=== PATIENT | female | born 1960 | race African-American/Black ===

== ENCOUNTER 2022-12-21 15:08 | Emergency (ER) | payer OTHER, MEDICAID ==
[~2022-12-21] VITALS: Ht 162.6 cm; Wt 68.0 kg
[2022-12-21 15:18] VITALS: BP 102/68
--- NOTE | 2022-12-21 15:23 | NUR ---
pt ambulatory to [facility] w steady gait.
[2022-12-21] MEDS ORDERED: IBUPROFEN 600 MG TAB PO ONE (15:40)
[2022-12-21] MEDS ORDERED: CYCL-711 PO (17:16)
[2022-12-21] MEDS ORDERED: NAPR-54 PO (17:16)
[2022-12-21] MEDS ORDERED: LID5T TP (17:16)
--- NOTE | 2022-12-21 18:13 | NUR ---
Patient discharged with v/s stable. Written and verbal after care instructions given and explained. Patient alert, oriented and verbalized understanding of instructions. Ambulatory with steady gait. All questions addressed prior to discharge. ID band removed. Patient advised to follow up with PMD. Rx of LIDODERM PATCH, FLEXERIL given. Patient educated on indication of medication including possible reaction and side effects. Opportunity to ask questions provided and answered.
== END 2022-12-21 18:13 | disposition home or self-care (01) ==
LOC: MED 15:08
DX: S16.1XXA Strain of muscle, fascia and tendon at neck level, initial encounter (principal); M79.10 Myalgia, unspecified site; M25.50 Pain in unspecified joint; F17.210 Nicotine dependence, cigarettes, uncomplicated; Z79.899 Other long term (current) drug therapy; V89.2XXA Person injured in unspecified motor-vehicle accident, traffic, initial encounter; Y93.89 Activity, other specified; Y92.89 Other specified places as the place of occurrence of the external cause; Y99.8 Other external cause status
CPT/HCPCS: 72040; 99283